=== PATIENT | female | born 1950 | race Caucasian/White ===

== ENCOUNTER 2020-04-11 22:57 | Emergency (ER) | payer OTHER ==
[~2020-04-11] VITALS: Ht 160 cm; Wt 76.2 kg
[2020-04-11] MEDS ORDERED: PAXIL20 MG PO (23:16)
[2020-04-11 23:23] LABS: ABSOLUTE NEUTROPHILS 3.7 thou/uL (1.4-8.2); BASOPHILS 1.2 % (0.0-2.0); EOSINOPHILS 1.8 % (0.0-3.0); HEMATOCRIT 41.5 % (37.0-47.0); HEMOGLOBIN 13.4 gm/dL (12.0-15.0); LYMPHOCYTES 21.6 % (24.0-44.0); MCHC 32.2 g/dL (28.0-37.0); MONOCYTES 4.3 % (1.0-8.0); PLATELET COUNT 392 thou/uL (150-400); POLYS 71.1 % (36.0-66.0); RBC 4.46 mil/uL (4.20-5.00); RDW 14.5 % (10.5-14.5); WBC 5.2 thou/uL (4.0-11.0)
[2020-04-11 23:38] LABS: ANION GAP < 0 mmol/L (7-16); BUN 12 mg/dL (7-18); CALCIUM 8.5 mg/dL (8.5-10.1); CHLORIDE 104 mmol/L (98-107); CO2 25 mmol/L (21-32); CREATININE 0.9 mg/dL (0.6-1.0); GLUCOSE 128 mg/dL (74-106); POTASSIUM 3.8 mmol/L (3.5-5.1); SODIUM 127 mmol/L (136-145)
[2020-04-11 23:45] LABS: ALBUMIN 4.3 g/dL (3.4-5.0); SGOT 18 U/L (15-37); SGPT 24 U/L (14-59); TOTAL BILIRUBIN 0.1 mg/dL (0.2-1.0); TOTAL PROTEIN 7.6 g/dL (6.4-8.2)
[2020-04-12 01:55] VITALS: BP 135/78
== END 2020-04-12 01:55 | disposition home or self-care (01) ==
LOC: ER 22:57
PROVIDERS: Emergency Medicine
DX: F10.920 Alcohol use, unspecified with intoxication, uncomplicated (principal); Z79.899 Other long term (current) drug therapy